=== PATIENT | female | born 1990 | race Caucasian/White ===

== ENCOUNTER 2018-09-01 09:48 | Outpatient (CLI) | payer OTHER ==
[2018-09-01 11:48] LABS: ADD UMIC YES; UR ASCORBIC ACID NEGATIVE (NEGATIVE); UR BACTERIA FEW /HPF (NONE SEEN); UR BILIRUBIN (Dip) NEGATIVE (NEGATIVE); UR BLOOD (Dip) NEGATIVE (NEGATIVE); UR CLARITY CLOUDY (CLEAR); UR COLOR YELLOW (YELLOW); UR GLUCOSE (Dip) NEGATIVE (NEGATIVE); UR KETONES (Dip) NEGATIVE (NEGATIVE); UR LEUKOCYTE ESTERASE (Dip) NEGATIVE Leu/ul (NEGATIVE); UR MUCUS FEW /HPF (NONE SEEN); UR NITRITE (Dip) NEGATIVE (NEGATIVE); UR RBC 1 /HPF (0-5); UR SPECIFIC GRAVITY (Dip) 1.017 (1.003-1.030); UR SQUAMOUS EPITHELIAL CELL MODERATE /HPF (FEW); UR TOTAL PROTEIN (Dip) 2+ mg/dl (NEGATIVE); UR UROBILINOGEN (Dip) NEGATIVE (NEGATIVE); UR WBC 4 /HPF (0-5)
== END 2018-09-01 13:28 | disposition home or self-care (01) ==
LOC: OBT 09:48 → L-D 09:49 → OBT 13:28
DX: O36.8130 Decreased fetal movements, third trimester, not applicable or unspecified (principal); Z3A.37 37 weeks gestation of pregnancy
CPT/HCPCS: 76818; 81001

== ENCOUNTER 2018-09-15 05:09 | Inpatient (IN) | payer OTHER ==
[2018-09-15] MEDS ORDERED: METHYLERGONOVINE 0.2 MG INJ IM (07:00)
[2018-09-15] MEDS ORDERED: LIDOCAINE 1% (MPF) 30 ML INJ INJ (07:00)
[2018-09-15] MEDS ORDERED: OXYTOCIN 30 UNITS/LR 500 ML IV ×3 (07:00→16:30)
[2018-09-15] MEDS ORDERED: MISOPROSTOL 200 MCG TAB PR ×2 (07:00→16:30)
[2018-09-15] MEDS ORDERED: CARBOPROST 250 MCG INJ IM ×2 (07:00→16:30)
[2018-09-15] MEDS ORDERED: BUTORPHANOL 2 MG INJ (07:22)
[2018-09-15] MEDS: BUTORPHANOL 2 MG INJ IV (07:47)
[2018-09-15] MEDS: LACTATED RINGER'S 1,000 ML IV ×2 (07:52→09:15)
[2018-09-15 07:55] LABS: ADD MAN DIFF? NO
[2018-09-15 07:58] LABS: BASOPHILS % 0.2 % (0.0-2.0); EOSINOPHILS # 0.2 10^3/ul (0.0-0.5); EOSINOPHILS % 1.5 % (0.0-7.0); HEMATOCRIT 41.3 % (37.0-47.0); HEMOGLOBIN 13.3 g/dl (12.0-16.0); LYMPHOCYTES # 2.4 10^3/ul (0.8-2.9); LYMPHOCYTES % 24.2 % (15.0-51.0); MEAN CORPUSCULAR HEMOGLOBIN 27.8 pg (29.0-33.0); MEAN CORPUSCULAR HGB CONC 32.2 g/dl (32.0-37.0); MEAN CORPUSCULAR VOLUME 86.2 fl (82.0-101.0); MEAN PLATELET VOLUME 11.4 fl (7.4-10.4); MONOCYTE # 0.6 10^3/ul (0.3-0.9); MONOCYTES % 6.1 % (0.0-11.0); NEUTROPHIL # 6.7 10^3/ul (1.6-7.5); NEUTROPHILS % 67.5 % (39.0-77.0); PLATELET COUNT 244 10^3/UL (140-415); RED BLOOD COUNT 4.79 10^6/ul (4.20-5.40); RED CELL DISTRIBUTION WIDTH 14.7 % (11.5-14.5)
[2018-09-15 08:24] LABS: INR 0.91; PROTIME 12.4 Sec (11.9-14.9)
[2018-09-15 08:25] LABS: PARTIAL THROMBOPLASTIN TIME 31.6 Sec (23.0-35.0)
[2018-09-15] MEDS ORDERED: MINERAL OIL LIGHT 10 ML VIAL TOP (08:30)
[2018-09-15] MEDS ORDERED: FENTAnyl 2MCG/ML-ROPIV 0.2% 100 ML BAG EPI (09:00)
[2018-09-15] MEDS ORDERED: NALOXONE (0.4 MG/ML) INJ IV (09:00)
[2018-09-15] MEDS ORDERED: ONDANSETRON 4 MG INJ IV ×2 (09:00→16:30)
[2018-09-15] MEDS ORDERED: HYDROmorphONE 0.5 MG/0.5 ML SYG IV ×2 (09:00)
[2018-09-15] MEDS ORDERED: DIPHENHYDRAMINE 50 MG INJ IV (09:00)
[2018-09-15] MEDS ORDERED: KETOROLAC 30 MG INJ IV (09:00)
[2018-09-15] MEDS: OXYTOCIN 30 UNITS/LR 500 ML IV ×3 (10:57→18:20)
[2018-09-15 13:27] LABS: HEPATITIS B SURFACE ANTIGEN NEGATIVE (NEGATIVE)
[2018-09-15] MEDS: LACTATED RINGER'S 1,000 ML IV* (16:22)
[2018-09-15] MEDS ORDERED: DIPHENHYDRAMINE 25 MG CAP PO (16:30)
[2018-09-15] MEDS ORDERED: ACETAMINOPHEN 325 MG TAB PO (16:30)
[2018-09-15] MEDS ORDERED: NACL 0.9% 3 ML SYG IV (16:30)
[2018-09-15] MEDS ORDERED: morphine 2 MG INJ IV (16:30)
[2018-09-15] MEDS ORDERED: HYDROCODONE/APAP (5/325) TAB PO (16:30)
[2018-09-15] MEDS ORDERED: ZOLPIDEM 5 MG TAB PO (16:30)
[2018-09-15 17:34] LABS: HEMATOCRIT 39.5 % (37.0-47.0); HEMOGLOBIN 12.7 g/dl (12.0-16.0)
[2018-09-15] MEDS: LANOLIN HPA 1 PKT TOP (18:17)
[2018-09-15] MEDS: WITCH HAZEL/GLYCERIN PAD PR (18:17)
[2018-09-15] MEDS: IBUPROFEN 600 MG TAB PO ×2 (18:18→23:29)
[2018-09-15 22:04] LABS: RAPID PLASMA REAGIN NONREACTIVE (NR)
[2018-09-15] MEDS: SENNA/DOCUSATE NA (8.6MG/50MG) TAB PO (22:17)
[2018-09-16] MEDS: LACTATED RINGER'S 1,000 ML IV* (00:22)
[2018-09-16] MEDS: IBUPROFEN 600 MG TAB PO ×4 (05:45→23:56)
[2018-09-16 08:38] LABS: ADD MAN DIFF? NO
[2018-09-16] MEDS: SENNA/DOCUSATE NA (8.6MG/50MG) TAB PO ×2 (08:41→21:38)
[2018-09-16 08:48] LABS: WHITE BLOOD COUNT 9.2 10^3/ul (4.8-10.8)
[2018-09-16 08:48] LABS: BASOPHILS % 0.3 % (0.0-2.0); EOSINOPHILS # 0.2 10^3/ul (0.0-0.5); EOSINOPHILS % 1.8 % (0.0-7.0); HEMATOCRIT 36.8 % (37.0-47.0); HEMOGLOBIN 11.8 g/dl (12.0-16.0); LYMPHOCYTES # 2.7 10^3/ul (0.8-2.9); LYMPHOCYTES % 28.8 % (15.0-51.0); MEAN CORPUSCULAR HGB CONC 32.1 g/dl (32.0-37.0); MEAN CORPUSCULAR VOLUME 87.2 fl (82.0-101.0); MEAN PLATELET VOLUME 11.1 fl (7.4-10.4); MONOCYTE # 0.5 10^3/ul (0.3-0.9); MONOCYTES % 5.4 % (0.0-11.0); NEUTROPHIL # 5.9 10^3/ul (1.6-7.5); NEUTROPHILS % 63.4 % (39.0-77.0); PLATELET COUNT 197 10^3/UL (140-415); RED BLOOD COUNT 4.22 10^6/ul (4.20-5.40); RED CELL DISTRIBUTION WIDTH 14.9 % (11.5-14.5)
[2018-09-16] MEDS: BENZOCAINE 20% 56 ML SPRAY TOP (15:24)
[2018-09-16] MEDS: LANOLIN HPA 1 PKT TOP (22:11)
[2018-09-17] MEDS: IBUPROFEN 600 MG TAB PO ×2 (06:30→11:52)
[2018-09-17] MEDS: SENNA/DOCUSATE NA (8.6MG/50MG) TAB PO (08:32)
[2018-09-17] MEDS: MEASLES,MUMPS,RUBELLA VACCINE INJ SC* (09:00)
[2018-09-17] MEDS: VARICELLA VACCINE LIVE/PF 1,350 UNIT/0.5 ML ML SC* (09:00)
[2018-09-17] MEDS: DIPHTH/TET/ACEL PERTUSS (ADULT) 0.5 ML VIAL IM* (11:02)
== END 2018-09-17 15:32 | disposition home or self-care (01) | DRG 807 ==
LOC: OBT 05:09 → L-D 05:10 → OBT 06:50 → L-D 06:50 → PP1 16:54
PROVIDERS: Obstetrics & Gynecology
PROC: 10E0XZZ Delivery of Products of Conception, External Approach (ICD-10-PCS; principal; 2018-09-15)
PROC: 0HQ9XZZ Repair Perineum Skin, External Approach (ICD-10-PCS; 2018-09-15)
DX: O70.0 First degree perineal laceration during delivery (principal); Z37.0 Single live birth; O99.214 Obesity complicating childbirth; E66.01 Morbid (severe) obesity due to excess calories; Z3A.39 39 weeks gestation of pregnancy; Z23 Encounter for immunization
CPT/HCPCS: 62322; 85014; 85018; 85025; 85610; 85730; 86592; 86850; 86900; 86901; 87340; 90715; 90716